=== PATIENT | male | born 1965 | race Caucasian/White ===

== ENCOUNTER 2021-10-02 07:22 | Emergency (ER) | payer OTHER ==
[~2021-10-02] VITALS: Ht 177.8 cm; Wt 84.0 kg
[2021-10-02 07:30] VITALS: BP 125/81
[2021-10-02] MEDS ORDERED: LIDOCAINE HCL/PF 1% 10 MG/ML 5ML VIAL INFIL ONE (07:45)
[2021-10-02] MEDS ORDERED: TOPUD PO (07:53)
[2021-10-02] MEDS ORDERED: ACETAMINOPHEN 325MG TABLET PO ONE (08:00)
[2021-10-02] MEDS ORDERED: LIDOCAINE HCL 1% 20ML VIAL (Pyxis) INJ INFIL NR (08:15)
== END 2021-10-02 08:22 ==
LOC: ER 07:22
DX: S00.03XA Contusion of scalp, initial encounter (principal); S00.01XA Abrasion of scalp, initial encounter; Y04.0XXA Assault by unarmed brawl or fight, initial encounter; Y93.89 Activity, other specified; Y92.018 Other place in single-family (private) house as the place of occurrence of the external cause
CPT/HCPCS: 99283; J3490